=== PATIENT | female | born 1965 | race Caucasian/White ===

== ENCOUNTER 2017-10-31 05:59 | Day surgery (SDC) | payer OTHER ==
[2017-10-26 15:55] VITALS: BMI 31.2
[2017-10-31] MEDS ORDERED: Bupivacaine HCl 0.5% PF (10 ml) Inj ONE (07:33)
[2017-10-31] MEDS ORDERED: Dexamethasone 4 mg/1 ml ONE (07:33)
[2017-10-31] MEDS ORDERED: Lidocaine Hydrochloride 10 ML INJ ONE ×2 (07:34→08:25)
[2017-10-31] MEDS ORDERED: Clindamycin 600mg/50ml NS 600 MG/50 ML BAG IVPB ONE (07:47)
[2017-10-31] MEDS ORDERED: Propofol 10 mg/ml Inj (20 ML) ONE ×7 (07:51→09:03)
[2017-10-31] MEDS ORDERED: Midazolam 2 MG/2 ML VIAL ONE ×2 (07:51→08:24)
[2017-10-31] MEDS ORDERED: Bupivacaine HCl 0.25% PF (10 ml) Inj ONE (08:25)
--- NOTE | 2017-10-31 09:48 | PCM.SURG1 ---
Surgeon's Initial Post Op Note - Surgeon's Notes Surgeon: Dr. Calderon Freelance Interpreter/Translator: Dr. Danette Larsen Type of Anesthesia: IV Sedation Anesthesia Administered By: Dr. Ragsdale Pre-Operative Diagnosis: Right foot recurrent Bunion and Hallux Limitus Operative Findings: Arthrex 1st MPJ fusion plate, screws. 4-0 vicryl, 3-0 vicryl, 4-0 prolene Post-Operative Diagnosis: same Operation Performed: Right foot 1st MTPJ fusion Specimen/Specimens Removed: none Estimated Blood Loss: EBL {In ML}: 25 Blood Products Given: N/A Drains Used: No Drains Post-Op Condition: Good Date of Surgery/Procedure: 10/31/17 Time of Surgery/Procedure: 08:20
[2017-10-31 11:38] VITALS: RESP 16; O2SAT 95
[2017-10-31 12:01] VITALS: BP 123/78; PULSE 76; TEMP 97.9
--- NOTE | 2017-10-31 14:37 | RAD ---
Right foot two views History: Right foot surgery. Comparison: None available. Findings: Postsurgical changes at the level of the 1st and 2nd digits with sideplate and screw fixation the level of the 1st mid metatarsal shaft extending to the mid 1st proximal phalanx. Productive change of the osseous cortex noted medially. Additional postsurgical changes at the 2nd metatarsal head. Plantar calcaneal spurring. Degenerative changes in the midfoot. Impression: Postsurgical changes.
--- NOTE | 2017-10-31 21:52 | PCM.OP ---
Operative Report - Operative Report Date of Surgery/Procedure: 10/31/17 Time of Surgery/Procedure: 08:20 Surgeon: Dr. Calderon Tube Room Supervisor: Dr. Danette Larsen Anesthesia/Sedation: IV sedation with Local Pre-Operative Diagnosis: 1)Right foot panful hallux Limitus with recurrent bunion deformity Post-Operative Diagnosis: same Indication for Surgery: Indications: The patient is a 52 year-old female with the above diagnoses. The patient has exhausted conservative treatment at this time and now requests surgical intervention. The patient signed the consent after careful explanation of risks, benefits, complication and alternatives for surgical procedure. No guarantees were given nor implied. 900 mg of Clindamycin IV were given to the pt hour prior to the procedure. NPO status was confirmed prior to taking pt to the OR. Operative Findings: Preparation: The patient was brought to the operating room and placed on the operating room table in supine position. A well-padded pneumatic thigh tourniquet was placed to the patient's right thigh. After induction of IV sedation, the patient received a total of 20 mL of 1:1 mix of 0.5% Marcaine plain and 1% Lidocaine plain in local block fashion to the Right foot. Once local anesthesia was achieved, the r lower extremity was then prepped and draped in usual sterile manner. Esmarch was utilized to exsanguinate the patient's right foot. Pneumatic ankle tourniquet was then inflated to 250 mmHg and procedure began. Procedure/Operation Description: Procedure: 1)Right foot 1st MTPJ arthrodesis with internal fixation. Attention was directed to the dorsal aspect of right foot 1st MTPJ. An approximately 5cm linear longitudinal incision was made medial and parallel to extensor halluces longus tendon. The incision was deepened through the subcutaneous tissues using sharp and blunt dissection all the way down to bone. Care was taken to identify and retract all vital neurovascular structures. The extensor digitorum tendons were preserved with retraction. The periosteal and capsular structures were then carefully dissected free of their osseous attachments and reflected medially and laterally thus exposing the head of the 1st metatarsal and the base of proximal phalanx into the operative site. Next, a 1.6mm Guide wire from Arthrex Low Profile MTP Plate Set was drilled into the center of the head of the 1st metatarsal from distal to proximal direction along the long axis of diaphysis. Next, a cannulated Metatarsal Reamer on a power handle was placed over the guide wire and the head of the 1st metatarsal was prepared until cancellous bone was exposed. Next, a 1.6mm Guide wire from Arthrex Low Profile MTP Plate Set was drilled into the center of the base of the 1st proximal phalanx from proximal to distal direction along the long axis of diaphysis. Next, a cannulated Phalangeal Reamer on a power handle was placed over the guide wire and the base of proximal phalanx was prepared until cancellous bone was exposed. Next, prominent exostosis at the plantar aspect of 1stmetatarsal head was resected and passed from the operative site. At this point, the surgical site was flushed with copious amount of normal sterile saline. Next, a low profile, 6 hole Arthrex MTP plate was applied to the dorsal aspect of the Right 1st MTPJ. The plate was temporarily fixated with two BB-Taks. Next, a 0.062 K- wire on a power was drilled across the 1st MTPJ from distal medial aspect of proximal phalanx to proximal lateral aspect of metatarsal head. Next, a 3.0mm x 26mm cannulated partially threaded screw was inserted over the K-wire, providing good compression as an inter-fragmentary screw. Next, Following AO principles and techniques, Two 3.0mm x 12mm non-locking screws, one 3.0mm x 12 Locking screw, and 3.0mm x 14mm Locking screws were inserted into the plate from dorsal to plantar direction, providing excellent compression of the plate onto the bone. The surgical site was flushed with copious amount of sterile normal saline solution. At this point, the position and orientation of 1st MTPJ was checked intraoperatively and was noted to be excellent. The periosteal and capsular structures were then reapproximate with #3-0 Vicryl. The subcutaneous tissue of the incision site was then reapproximated and coapted utilizing #3-0 vicryl. The skin was then reapproximated and coapted utilizing #4-0 Prolene in sim suture technique. The right foot was dressed with JumpStart Antimicrobial dressing, DSD, and ESTRELLA bandage. The attending was present the entire case. Estimated Blood Loss: 20 mL Complications: None Discharge & Condition: Postoperative Condition: The patient tolerated the anesthesia and procedure well and was escorted to the recovery room with vital signs stable and neurovascular status intact to the right foot. This patient will follow up with Dr. Calderon.
== END 2017-10-31 12:35 | disposition home or self-care (01) ==
LOC: C.SDS 05:59
PROVIDERS: ATTEND Podiatrist Foot & Ankle Surgery
DX: M20.21 Hallux rigidus, right foot (principal); M20.11 Hallux valgus (acquired), right foot; M20.5X9 Other deformities of toe(s) (acquired), unspecified foot
CPT/HCPCS: 26850; 73620; J2001; J2250; J2704

== ENCOUNTER 2018-11-07 08:42 | Day surgery (SDC) | payer OTHER ==
[2018-11-03 09:13] VITALS: BMI 36.3
[2018-11-07] MEDS ORDERED: Bupivacaine HCl 0.5% PF (10 ml) Inj ONE (10:54)
[2018-11-07] MEDS ORDERED: Lidocaine Hydrochloride 20 ML INJ ONE (10:54)
[2018-11-07] MEDS ORDERED: Clindamycin 600mg/50ml NS 600 MG/50 ML BAG IVPB ONE (10:54)
[2018-11-07] MEDS ORDERED: Propofol 10 mg/ml Inj (20 ML) ONE ×2 (10:58→11:27)
[2018-11-07] MEDS ORDERED: Midazolam 2 MG/2 ML VIAL ONE (10:58)
--- NOTE | 2018-11-07 11:58 | PCM.SURG1 ---
Surgeon's Initial Post Op Note - Surgeon's Notes Surgeon: Dr. Campuzano, DPM Recovery Analyst: Dr. Curtis Lewis PGY-1 DPM Type of Anesthesia: IV Sedation, Local Anesthesia Administered By: Dr. Nicole Pre-Operative Diagnosis: 1. Painful retained hardware, right foot. 2. 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 materials: 3-0 vicryl, 4-0 vicryl, 4-0 prole ne. preoperative injectables: 20 cc of 1:1 1% lidocaine plain and 0.5% marcaine plain. postoperative injectables: 10 cc of 0.5% marcaine plain Post-Operative Diagnosis: same Operation Performed: 1. removal of painful retained hardware, right foot. 2. 4th extensor tenotomy, right foot Specimen/Specimens Removed: right foot hardware Estimated Blood Loss: EBL {In ML}: 1 Blood Products Given: N/A Drains Used: No Drains Post-Op Condition: Good Date of Surgery/Procedure: 11/07/18 Time of Surgery/Procedure: 11:05
[2018-11-07] MEDS ORDERED: Oxycodone/Acetaminophen 5/325 mg Tab PO PRN ×2 (12:08)
[2018-11-07] MEDS ORDERED: Lactated Ringer's 1,000 ML IV SCH (12:15)
[2018-11-07] MEDS ORDERED: HYDROmorphone 0.5 mg/0.5 ml ISec IVP PRN (12:15)
[2018-11-07] MEDS ORDERED: Albuterol HFA 90 mcg/actuation (8 g) IH PRN (12:24)
--- NOTE | 2018-11-07 13:07 | RAD ---
Date of service: 11/07/2018 PROCEDURE: Right Foot Radiographs. HISTORY: s/p right foot surgery COMPARISON: 10/31/2017. FINDINGS: BONES: Interval removal of metallic plate and screws at the 1st MTP joint. There are postsurgical changes in the proximal phalanx of the great toe and distal 1st metatarsal. There is a metallic screw in the head of the 2nd metatarsal. No acute displaced fracture or bone destruction. Bone alignment is normal. There is a prominent plantar calcaneal spur. JOINTS: Postsurgical changes in the 1st MTP joint. SOFT TISSUES: There is mild soft tissue swelling in the great toe and dorsum of the foot. OTHER FINDINGS: None. IMPRESSION: Status post removal of metallic plate and screws at the 1st MTP joint. Postoperative changes in the surrounding periarticular soft tissues.
[2018-11-07 13:25] VITALS: RESP 18; O2SAT 97
[2018-11-07 14:01] VITALS: BP 128/54; PULSE 78; TEMP 97.7
--- NOTE | 2018-11-08 03:06 | OP ---
PROCEDURE DATE: 11/07/2018 PREOPERATIVE DIAGNOSES: 1. Painful retained hardware of the right foot. 2. 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 POSTOPERATIVE DIAGNOSES: 1. Painful retained hardware of the right foot. 2. 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 PROCEDURES: 1. Removal of painful retained hardware of the right foot. 2. Fourth extensor tenotomy of the right foot. SURGEON: Edward Warner DPM INTERVENTIONAL PHYSIATRIST: Norm Lewis, PGY-1 TYPE OF ANESTHESIA: IV sedation and local anesthesia. ANESTHESIA ADMINISTERED BY: Dr. Nicole. INDICATIONS: The patient is a 53-year-old female with the above diagnosis. The patient has exhausted all the conservative treatments at this time and now requests surgical intervention. The patient has signed the consent after careful explanation of risks, benefits, complications, and alternatives for surgical procedure. No guarantees were given nor implied. N.p.o. status was confirmed prior to taking the patient to the OR. PREPARATION: The patient was brought to the operating room and placed on the operating room table in a supine position. Time-out was performed for identification of the correct patient and procedure. After induction of IV sedation, the local block was performed consisting of 20 mL of 1:1 mixture of 1% lidocaine plain and 0.5% Marcaine plain. The left foot was then prepped and draped in the normal sterile manner. A 250 mmHg ankle tourniquet was used to achieve hemostasis. PROCEDURE #1: Removal of painful retained hardware of the right foot. Attention was then directed to the right first metatarsophalangeal joint where a plate with four screws were present and used to fuse the first metatarsophalangeal joint. An approximately 5 cm linear incision was made with a #15 blade. The incision was deepened through the subcutaneous tissue using sharp and blunt dissection all the way down to the bone. Care was taken to identify and retract all the vital neurovascular structures. The plate was visualized through the incision using [place] elevator. The soft tissue was dissected from the hardware and the four screws were removed from the plate using screwdriver, and the plate itself was removed from the first metatarsophalangeal joint. Another interfragmentary screw noted and was removed using screwdriver. The wound was then flushed with copious amount of sterile normal saline solution. Then, reapproximation and coaptation of the subcutaneous tissue layer done utilizing a #3-0 Vicryl in an interrupted subcutaneous suture fashion. The skin overlying the surgical site was then reapproximated and coapted utilizing a #4-0 Prolene with the simple sutures. PROCEDURE #2: Fourth digit extensor tenotomy of the right foot. Attention was then directed to the right fourth toe at which it was noted that it was elevated above the level of the rest of the digit. Using sterile #15 blade, A 0.5 cm transverse skin incision was made at the level of the fourth metatarsophalangeal joint in which using the #15 blade subcutaneously extensor tendon release was performed until the fourth toe was completely free and go down to the same level of the rest of the toes. Then, closure of the skin overlying the percutaneous extensor tenotomy done using a #4-0 Prolene in a simple suture fashion. Then, injection of 7 mL of Marcaine used to achieve postoperative analgesia to the first operation site in a Jimenez block fashion and another 3 mL of Marcaine of 0.5% plain used in a V block fashion to the fourth toe to provide analgesia to the second operation site. Incision site was then dressed with Xeroform, DSD, and Vince bandage. POSTOPERATIVE CONDITION: The patient tolerated the anesthesia and the procedure well and was escorted to the recovery room with vital signs stable and neurovascular status intact to the right lower extremity. This patient will be fully bearing weight to his right lower extremities in a surgical shoe and to follow up with Dr. Edward Warner at his office. Norm Lewis DPM/[place] Edward Warner DPM [facility]
[2018-11-08] MEDS ORDERED: Fluticasone-Vilanterol 200/25mcg Diskus INH SCH (08:00)
== END 2018-11-07 14:05 | disposition home or self-care (01) ==
LOC: C.SDS 08:42
PROVIDERS: ATTEND Podiatrist Foot & Ankle Surgery
DX: T84.84XA Pain due to internal orthopedic prosthetic devices, implants and grafts, initial encounter (principal); T84.498D Other mechanical complication of other internal orthopedic devices, implants and grafts, subsequent encounter; M20.41 Other hammer toe(s) (acquired), right foot; M24.50 Contracture, unspecified joint
CPT/HCPCS: 20680; 28234; 73630; J2250; J2704; J3010